=== PATIENT | female | born 1960 | race Caucasian/White ===

== ENCOUNTER → 2024-09-27 08:17 | Outpatient (REF) | payer BC, SELFPAY | LOC: HWRAD 08:17 | PROVIDERS: ATTENDING PHYSICIAN Obstetrics & Gynecology; FAMILY PHYSICIAN Family Medicine | DX: R10.2 Pelvic and perineal pain (principal) | CPT/HCPCS: 76830; 76856 ==

== ENCOUNTER → 2024-12-21 08:19 | Outpatient (REF) | payer BC, SELFPAY | LOC: RCS 08:19 | PROVIDERS: ATTENDING PHYSICIAN Nuclear Medicine Nuclear Cardiology; FAMILY PHYSICIAN Family Medicine | DX: R07.9 Chest pain, unspecified (principal); R00.2 Palpitations; I49.1 Atrial premature depolarization; I34.0 Nonrheumatic mitral (valve) insufficiency; R55 Syncope and collapse; I47.10 Supraventricular tachycardia, unspecified | CPT/HCPCS: 93017; 93350 ==

== ENCOUNTER → 2025-04-05 09:57 | Outpatient (REF) | payer BC, SELFPAY | LOC: WDC 09:57 | PROVIDERS: ATTENDING PHYSICIAN Obstetrics & Gynecology; FAMILY PHYSICIAN Family Medicine | DX: R92.8 Other abnormal and inconclusive findings on diagnostic imaging of breast (principal) | CPT/HCPCS: 76642; 77061; 77065 ==